=== PATIENT | male | born 1945 | race Caucasian/White ===

== ENCOUNTER 2016-11-12 15:31 | Emergency (ER) | payer MEDICARE, BC, OTHER ==
[2016-11-12] MEDS ORDERED: ASPIRIN 81 MG TABLET, CHEWABLE PO ONE (15:48)
--- NOTE | 2016-11-12 15:48 | ER Document Report ---
ED Medical Screen (RME) - General Chief Complaint: Chest Pain Stated Complaint: HEART RATE PROBLEM Notes: h/o a fib, previous cryoablation 2010 palpitations, sudden onset this AM while he was getting ready to go for a walk states he felt dizzy, nauseated, diaphoretic constant palpitations, denies chest pain, pressure, sob, dyspnea I have greeted and performed a rapid initial assessment of this patient. A comprehensive ED assessment and evaluation of the patient, analysis of test results and completion of the medical decision making process will be conducted by additional ED providers. TRAVEL OUTSIDE OF THE [place] IN LAST 30 DAYS: No - Related Data Allergies/Adverse Reactions: MALVIN Inhibitors [Malvin Inhibitors] Allergy (Verified 11/12/16 15:44) carisoprodol [From Soma] Allergy (Verified 11/12/16 15:44) Past Medical History - Past Medical History Cardiac Medical History: Reports: Hx Atrial Fibrillation, Hx Hypertension Malignancy Medical History: Reports Hx Prostate Cancer Past Surgical History: Reports: Hx Cardiac Surgery - ablation, cardioversion, Hx Orthopedic Surgery - left knee, Hx Testicular Surgery - radical prostatectomyComment Only: Hx Bowel Surgery - right inguinal hernia - Immunizations Hx Diphtheria, Pertussis, Tetanus Vaccination: No
[2016-11-12 16:19] LABS: ABSOLUTE BASOPHILS # (AUTO) 0.1 10^3/uL (0.0-0.2); ABSOLUTE LYMPHOCYTES (AUTO) 1.4 10^3/uL (0.5-4.7); ABSOLUTE MONOCYTES (AUTO) 0.6 10^3/uL (0.1-1.4); ABSOLUTE NEUT (AUTO) 5.3 10^3/uL (1.7-8.2); BASOPHILS % (AUTO) 0.7 % (0-2); EOSINOPHILS % (AUTO) 0.4 % (0-6); HEMATOCRIT 38.5 % (37.9-51.0); HEMOGLOBIN 13.2 g/dL (13.5-17.0); HGB HCT DIFFERENCE 1.1; LYMPHOCYTES % (AUTO) 19.1 % (13-45); MEAN CORPUSCULAR HEMOGLOBIN 31.9 pg (27.0-33.4); MEAN CORPUSCULAR HGB CONC 34.3 g/dL (32.0-36.0); MEAN CORPUSCULAR VOLUME 93 fl (80-97); RED BLOOD COUNT 4.13 10^6/uL (4.35-5.55); RED CELL DISTRIBUTION WIDTH 12.4 % (11.5-14.0); SEGMENTED NEUTROPHILS % (AUTO) 71.8 % (42-78); WHITE BLOOD COUNT 7.4 10^3/uL (4.0-10.5)
[2016-11-12 16:38] LABS: ALANINE AMINOTRANSFERASE 71 U/L (21-72); ALBUMIN 4.4 g/dL (3.5-5.0); ALKALINE PHOSPHATASE 79 U/L (38-126); ANION GAP 13 (5-19); ASPARTATE AMINO TRANSFERASE 68 U/L (17-59); BILIRUBIN,TOTAL 1.1 mg/dL (0.2-1.3); BLOOD UREA NITROGEN 29 mg/dL (7-20); CALCIUM 9.5 mg/dL (8.4-10.2); CARBON DIOXIDE 23 mmol/L (22-30); CHLORIDE 97 mmol/L (98-107); CREATINE KINASE 100 U/L (55-170); CREATININE RESULT 0.76 mg/dL (0.52-1.25); GLUCOSE 136 mg/dL (75-110); POTASSIUM 4.1 mmol/L (3.6-5.0); SODIUM 133.1 mmol/L (137-145); TOTAL PROTEIN 7.1 g/dL (6.3-8.2)
[2016-11-12 16:49] LABS: CREATINE KINASE MB 2.26 ng/mL (<4.55); TROPONIN I 0.033 ng/mL
[2016-11-12] MEDS ORDERED: NORMAL SALINE 1000 ML 1,000 ML IV ONE (18:18)
--- NOTE | 2016-11-12 18:54 | ER Document Report ---
ED General - General Time seen by provider: 18:35 Mode of Arrival: Ambulatory Information source: Patient TRAVEL OUTSIDE OF THE [place] IN LAST 30 DAYS: No - HPI Onset: This morning Associated symptoms: Nausea Exacerbated by: Standing <YESSENIA SHINE - Last Filed: 11/12/16 20:17> <MARY PURDY - Last Filed: 11/13/16 00:48> - General Chief Complaint: Palpitations Stated Complaint: HEART RATE PROBLEM Notes: Patient is a 71-year-old male presenting to the emergency department with complaints of dizziness and palpitations. Patient states that this morning between 0500 and 0600 he "twinged" his knee and fell and hit his head against the wall. Patient states that he then began to feel very dizzy and nauseated. Patient states he had a similar episode of vertigo when he sneezed and hit his head in his car years prior. Patient states that since this morning he has had continued dizziness and room spinning sensations. Patient states that he is feeling a little bit better but he has not tried to stand up at this point. Patient states that he believes a few tries to stand up he will probably fall from the dizziness. Patient states that while having then x-ray he felt like he was going to pass out. Patient states that in the past when he had similar symptoms in the past patient took meclizine which relieved his symptoms. Patient has a history of A. fib with some ablations. (YESSENIA SHINE) - Related Data Allergies/Adverse Reactions: MALVIN Inhibitors [Malvin Inhibitors] Allergy (Verified 11/12/16 15:44) carisoprodol [From Soma] Allergy (Verified 11/12/16 15:44) Past Medical History - General Information source: Patient - Social History Smoking Status: Never Smoker Cigarette use (# per day): No Chew tobacco use (# tins/day): No Frequency of alcohol use: None Drug Abuse: None Family History: None Patient has suicidal ideation: No Patient has homicidal ideation: No - Past Medical History Cardiac Medical History: Reports: Hx Atrial Fibrillation, Hx Hypertension Malignancy Medical History: Reports Hx Prostate Cancer Past Surgical History: Reports: Hx Bowel Surgery - right inguinal hernia, Hx Cardiac Surgery - ablation, cardioversion, Hx Orthopedic Surgery - left knee, Hx Testicular Surgery - radical prostatectomy - Immunizations Hx Diphtheria, Pertussis, Tetanus Vaccination: No <YESSENIA SHINE - Last Filed: 11/12/16 20:17> Review of Systems - Review of Systems Constitutional: No symptoms reported EENT: No symptoms reported Cardiovascular: See HPI, Dizziness, Lightheaded Respiratory: No symptoms reported Gastrointestinal: See HPI, Nausea Genitourinary: No symptoms reported Male Genitourinary: No symptoms reported Musculoskeletal: No symptoms reported Skin: No symptoms reported Hematologic/Lymphatic: No symptoms reported Neurological/Psychological: No symptoms reported -: Yes All other systems reviewed and negative <YESSENIA SHINE - Last Filed: 11/12/16 20:17> Physical Exam - Vital signs Interpretation: Normal - General General appearance: Appears well, Alert - HEENT Head: Normocephalic, Atraumatic Eyes: Normal Pupils: PERRL Mucous membranes: Dry - Respiratory Respiratory status: No respiratory distress Chest status: Nontender Breath sounds: Normal Chest palpation: Normal - Cardiovascular Rhythm: Regular Heart sounds: Normal auscultation Murmur: No - Abdominal Inspection: Normal Distension: No distension Bowel sounds: Normal Tenderness: Nontender Organomegaly: No organomegaly - Back Back: Normal, Nontender - Extremities General upper extremity: Normal inspection, Nontender, Normal color, Normal ROM , Normal temperature General lower extremity: Normal inspection, Nontender, Normal color, Normal ROM , Normal temperature, Normal weight bearing. No: Peter's sign - Neurological Neuro grossly intact: Yes Cognition: Normal Orientation: AAOx4 Elinor Coma Scale Eye Opening: Spontaneous [place] Coma Scale Verbal: Oriented Elinor Coma Scale Motor: Obeys Commands [place] Coma Scale Total: 15 Speech: Normal Motor strength normal: LUE, RUE, LLE, RLE Sensory: Normal - Psychological Associated symptoms: Normal affect, Normal mood - Skin Skin Temperature: Warm Skin Moisture: Dry Skin Color: Normal <MARY PURDY - Last Filed: 11/13/16 00:48> - Vital signs Vitals: Temp Pulse Resp BP Pulse Ox 97.6 F 114 H 20 163/105 H 98 11/12/16 15:45 11/12/16 15:45 11/12/16 15:45 11/12/16 15:45 11/12/16 15:45 (YESSENIA SHINE) (MARY PURDY) Course - Laboratory Result Diagrams: 11/12/16 16:00 11/12/16 16:00 <YESSENIA SHINE - Last Filed: 11/12/16 20:17> - Laboratory Result Diagrams: 11/12/16 16:00 11/12/16 16:00 - Diagnostic Test Radiology reviewed: Reports reviewed - EKG Interpretation by Me EKG shows normal: Sinus rhythm Rate: Tachycardia Rhythm: NSR <MARY PURDY - Last Filed: 11/13/16 00:48> - Re-evaluation Re-evalutation: 11/12/16 20:30 Patient is rechecked and asked how he is feeling with the medication. Patient states that he is feeling better and not as dizzy. (YESSENIA SHINE) Patient with no acute findings on blood work. EKG with no acute changes. Patient has not had any chest pain or headache. Patient has had vertigo in the past and feels similar today. Patient has been given Zofran and meclizine. He is not orthostatic. Ambulates without difficulty around the emergency department. No further head spinning sensation. Patient will be discharged home and is to follow-up with his doctor. He'll be given prescription for meclizine and Zofran. Understands agrees with plan. (MARY PURDY) - Vital Signs Vital signs: Temp Pulse Resp BP Pulse Ox 98.0 F 94 23 H 126/85 H 100 11/12/16 22:52 11/12/16 22:52 11/12/16 22:52 11/12/16 22:52 11/12/16 22:52 (YESSENIA SHINE) (MARY PURDY) - Laboratory Laboratory results interpreted by me: 11/12/16 11/12/16 11/12/16 16:00 16:00 18:38 RBC 4.13 L Hgb 13.2 L Sodium 133.1 L Chloride 97 L BUN 29 H Glucose 136 H AST 68 H Urine Ketones 20 H (YESSENIA SHINE) (MARY PURDY) Discharge <YESSENIA SHINE - Last Filed: 11/12/16 20:17> <MARY PURDY - Last Filed: 11/13/16 00:48> - Discharge Clinical Impression: Vertigo Condition: Stable Disposition: HOME, SELF-CARE Instructions: Vertigo ([facility]) Prescriptions: Meclizine HCl 25 mg PO TID #21 tablet Ondansetron [Zofran Odt 4 mg Tablet] 1 tab PO Q4H PRN #15 tab.rapdis PRN Reason: For Nausea/Vomiting Referrals: ADRIANA CRUZ MD [Primary Care Provider] - Follow up in 3-5 days Scribe Attestation: 11/13/16 00:48 I personally performed the services described in the documentation, reviewed and edited the documentation which was dictated to the scribe in my presence, and it accurately records my words and actions. (MARY PURDY) Scribe Documentation - Scribe Written by Nereida:: Yessenia Shine 11/12/16 20:55 acting as scribe for :: Brenda <YESSENIA SHINE - Last Filed: 11/12/16 20:17>
[2016-11-12] MEDS ORDERED: MECLIZINE HCL 25 MG TABLET PO ONE ×2 (18:57→22:24)
[2016-11-12] MEDS ORDERED: ONDANSETRON HCL INJ/PF 4 MG/2 ML SDV IV ONE (18:57)
[2016-11-12 19:19] LABS: APPEARANCE,URINE CLEAR; BILIRUBIN,URINE NEGATIVE (NEGATIVE); GLUCOSE, URINE NEGATIVE (NEGATIVE); KETONES,URINE 20 mg/dL (NEGATIVE); LEUKOCYTE ESTERASE,URINE NEGATIVE (NEGATIVE); NITRITE,URINE NEGATIVE (NEGATIVE); PROTEIN,URINE NEGATIVE (NEGATIVE); URINE SPECIFIC GRAVITY 1.024; UROBILINOGEN,URINE NEGATIVE mg/dL (<2.0)
[2016-11-12] MEDS ORDERED: METOCLOPRAMIDE HCL INJ/PF 10 MG/2 ML SDV IV ONE (20:07)
[2016-11-12] MEDS ORDERED: ONDANSETRON ODT 4 MG TAB (6 TAB/DSPK) PO PRN (22:24)
[2016-11-12 22:53] VITALS: BP 126/85
--- NOTE | 2016-11-13 00:10 | EKG REPORT ---
SEVERITY:- ABNORMAL ECG - SINUS TACHYCARDIA LVH WITH SECONDARY REPOLARIZATION ABNORMALITY CONSIDER ANTERIOR INFARCT : Confirmed by: Maria M Cornelius 13-Nov-2016 00:09:05
--- NOTE | 2016-11-13 00:10 | EKG REPORT ---
SEVERITY:- ABNORMAL ECG - SINUS RHYTHM LEFT VENTRICULAR HYPERTROPHY PROBABLE INFERIOR INFARCT, AGE INDETERMINATE CONSIDER ANTERIOR INFARCT BORDERLINE PROLONGED QT INTERVAL : Confirmed by: Maria M Cornelius 13-Nov-2016 00:08:49
== END 2016-11-12 22:53 | disposition home or self-care (01) ==
LOC: ER 15:31
DX: R42 Dizziness and giddiness (principal); R00.2 Palpitations; R11.0 Nausea; I48.91 Unspecified atrial fibrillation; Z85.46 Personal history of malignant neoplasm of prostate
CPT/HCPCS: 93005; 99285; 96361; 96374; 96375; 36415; 82553; 82550; 84443; 85025; 80053; 81001; 84484; 71010; 93010; A9270 ×3; J2765; J2405; J7030

== ENCOUNTER → 2017-03-20 | Outpatient (CLI) | payer MEDICARE, BC, OTHER ==
[2017-03-21 09:09] LABS: PROSTATE SPECIFIC ANTIGEN <0.1 ng/mL (0.0-4.0); PSA FREE <0.01 ng/mL
== END ==
LOC: OD 09:03
PROVIDERS: ATTEND Urology
DX: C61 Malignant neoplasm of prostate (principal)
CPT/HCPCS: 36415; 84154

== ENCOUNTER → 2017-10-01 | Outpatient (CLI) | payer MEDICARE, BC, OTHER ==
[2017-10-01 09:58] LABS: ANION GAP 12 (5-19); BLOOD UREA NITROGEN 13 mg/dL (7-20); CARBON DIOXIDE 28 mmol/L (22-30); CHLORIDE 100 mmol/L (98-107); MAGNESIUM 1.9 mg/dL (1.6-2.3); POTASSIUM 4.7 mmol/L (3.6-5.0); SODIUM 139.6 mmol/L (137-145)
== END ==
LOC: OD 08:40
PROVIDERS: ATTEND Internal Medicine
DX: C61 Malignant neoplasm of prostate (principal); I10 Essential (primary) hypertension
CPT/HCPCS: 36415; 80051; 82565; 83735; 84520

== ENCOUNTER → 2018-03-18 | Outpatient (CLI) | payer MEDICARE, BC, OTHER ==
[2018-03-19 09:09] LABS: PROSTATE SPECIFIC ANTIGEN <0.1 ng/mL (0.0-4.0)
[2018-03-19 09:10] LABS: PSA FREE <0.01 ng/mL
== END ==
LOC: OD 09:35
PROVIDERS: ATTEND Urology
DX: C61 Malignant neoplasm of prostate (principal)
CPT/HCPCS: 36415; 84154

== ENCOUNTER → 2018-05-27 | Outpatient (CLI) | payer MEDICARE, BC, OTHER ==
--- NOTE | 2018-05-27 15:17 | RADIOLOGY REPORT (SQ) ---
EXAM DESCRIPTION: CHEST PA/LATERAL; RIBS LEFT W/O PA CHEST COMPLETED DATE/TIME: 05/27/2018 2:55 pm REASON FOR STUDY: PLEURODYNIA,SOB COMPARISON: 11/12/2016 EXAM PARAMETERS: NUMBER OF VIEWS: 7 views. TECHNIQUE: Digital Frontal and Lateral radiographic views of the chest acquired. Oblique views of th e left ribs. RADIATION DOSE: NA LIMITATIONS: none FINDINGS: LUNGS AND PLEURA: Chronic elevation right diaphragm. No evidence of pulmonary edema or pn eumonia. No pneumothorax. MEDIASTINUM AND HILAR STRUCTURES: No masses or contour abnormalities. HEART AND VASCULAR STRUCTURES: Heart normal size. No evidence for failure. BONES: No acute rib fracture. HARDWARE: CABG. OTHER: No other significant finding. IMPRESSION: No acute findings in the chest. TECHNICAL DOCUMENTATION: JOB ID: [id number] [employer]- All Rights Reserved Reading location - IP/workstation name: [email or web address]
--- NOTE | 2018-05-27 15:17 | RADIOLOGY REPORT (SQ) ---
EXAM DESCRIPTION: CHEST PA/LATERAL; RIBS LEFT W/O PA CHEST COMPLETED DATE/TIME: 05/27/2018 2:55 pm REASON FOR STUDY: PLEURODYNIA,SOB COMPARISON: 11/12/2016 EXAM PARAMETERS: NUMBER OF VIEWS: 7 views. TECHNIQUE: Digital Frontal and Lateral radiographic views of the chest acquired. Oblique views of th e left ribs. RADIATION DOSE: NA LIMITATIONS: none FINDINGS: LUNGS AND PLEURA: Chronic elevation right diaphragm. No evidence of pulmonary edema or pn eumonia. No pneumothorax. MEDIASTINUM AND HILAR STRUCTURES: No masses or contour abnormalities. HEART AND VASCULAR STRUCTURES: Heart normal size. No evidence for failure. BONES: No acute rib fracture. HARDWARE: CABG. OTHER: No other significant finding. IMPRESSION: No acute findings in the chest. TECHNICAL DOCUMENTATION: JOB ID: [id number] [employer]- All Rights Reserved Reading location - IP/workstation name: [email or web address]
== END ==
LOC: OD 14:30
PROVIDERS: ATTEND Internal Medicine
DX: R07.81 Pleurodynia (principal); R06.02 Shortness of breath
CPT/HCPCS: 71046

== ENCOUNTER → 2018-07-23 | Outpatient (CLI) | payer MEDICARE, BC, OTHER ==
[2018-07-23 08:42] LABS: ABSOLUTE BASOPHILS # (AUTO) 0.1 10^3/uL (0.0-0.2); ABSOLUTE EOSINOPHILS # (AUTO) 0.1 10^3/uL (0.0-0.6); ABSOLUTE LYMPHOCYTES (AUTO) 1.1 10^3/uL (0.5-4.7); ABSOLUTE MONOCYTES (AUTO) 0.6 10^3/uL (0.1-1.4); ABSOLUTE NEUT (AUTO) 2.5 10^3/uL (1.7-8.2); EOSINOPHILS % (AUTO) 1.7 % (0-6); HEMATOCRIT 39.2 % (37.9-51.0); HEMOGLOBIN 13.6 g/dL (13.5-17.0); LYMPHOCYTES % (AUTO) 25.3 % (13-45); MEAN CORPUSCULAR HEMOGLOBIN 34.4 pg (27.0-33.4); MEAN CORPUSCULAR HGB CONC 34.9 g/dL (32.0-36.0); MEAN CORPUSCULAR VOLUME 99 fl (80-97); MONOCYTES % (AUTO) 12.9 % (3-13); PLATELET COUNT 187 10^3/uL (150-450); RED BLOOD COUNT 3.97 10^6/uL (4.35-5.55); RED CELL DISTRIBUTION WIDTH 13.2 % (11.5-14.0); SEGMENTED NEUTROPHILS % (AUTO) 58.1 % (42-78); TOTAL CELLS COUNTED % (AUTO) 100 %; WHITE BLOOD COUNT 4.3 10^3/uL (4.0-10.5)
[2018-07-23 09:04] LABS: ALANINE AMINOTRANSFERASE 89 U/L (21-72); ALBUMIN 4.1 g/dL (3.5-5.0); ALKALINE PHOSPHATASE 86 U/L (38-126); ANION GAP 14 (5-19); ASPARTATE AMINO TRANSFERASE 118 U/L (17-59); BILIRUBIN,DIRECT 0.5 mg/dL (0.0-0.4); BILIRUBIN,TOTAL 1.4 mg/dL (0.2-1.3); BLOOD UREA NITROGEN 16 mg/dL (7-20); CARBON DIOXIDE 28 mmol/L (22-30); CHLORIDE 102 mmol/L (98-107); CHOLESTEROL 144.51 mg/dL (0-200); GLUCOSE 90 mg/dL (75-110); POTASSIUM 3.8 mmol/L (3.6-5.0); SODIUM 143.6 mmol/L (137-145); TOTAL PROTEIN 7.1 g/dL (6.3-8.2); TRIGLYCERIDES 72 mg/dL (<150)
[2018-07-23 09:15] LABS: DIRECT LDL 55 mg/dL (<100)
== END ==
LOC: OD 07:24
PROVIDERS: ATTEND Internal Medicine
DX: I10 Essential (primary) hypertension (principal); E78.5 Hyperlipidemia, unspecified; R53.83 Other fatigue; G47.33 Obstructive sleep apnea (adult) (pediatric)
CPT/HCPCS: 36415; 80053; 80061; 84443; 85025

== ENCOUNTER 2018-07-31 08:31 | Inpatient (IN) | payer MEDICARE, BC, OTHER ==
[2018-07-31] MEDS ORDERED: LORAZEPAM INJ 2 MG/1 ML VIAL IV ONE (09:07)
[2018-07-31] MEDS ORDERED: NORMAL SALINE 1000 ML 1,000 ML IV ONE (09:12)
--- NOTE | 2018-07-31 09:15 | ER Document Report ---
ED General - General Chief Complaint: Alcohol Withdrawl Stated Complaint: NAUSEA Time Seen by Provider: 07/31/18 08:45 TRAVEL OUTSIDE OF THE [place] IN LAST 30 DAYS: No - HPI Patient complains to provider of: tremors Onset: Other - This is 73-year-old man with a complex past medical history including mitral valve repair as well as atrial fibrillation on Eliquis as well as tikosyn that presents for evaluation of desired alcohol abstention in the setting of having drank nearly 1/5 of vodka for the last 5 years. He did abstain from alcohol for a brief period of time while he was hospitalized for a surgery last August. During that time he did require doses of Ativan to help with his symptoms. Since that time he is continued to drink daily. He has never had any seizure in the past, he has however developed bad shaking and agitation over the last 12 hours. His last drink was approximately 48 hours ago. He denies any chest pain but does endorse some palpitations, denies any abdominal pain diarrhea constipation or dysuria. His notes that he does seem a little confused and she was very concerned. - Related Data Allergies/Adverse Reactions: MALVIN Inhibitors [Malvin Inhibitors] Allergy (Verified 07/31/18 08:33) carisoprodol [From Soma] Allergy (Verified 07/31/18 08:33) Past Medical History - General Information source: Patient, Relative - Social History Smoking Status: Former Smoker Family History: None - Past Medical History Cardiac Medical History: Reports: Hx Atrial Fibrillation, Hx Hypertension Renal/ Medical History: Denies: Hx Peritoneal Dialysis Malignancy Medical History: Reports Hx Prostate Cancer Past Surgical History: Reports: Hx Bowel Surgery - right inguinal hernia, Hx Cardiac Surgery - ablation, cardioversion, Hx Orthopedic Surgery - left knee, Hx Testicular Surgery - radical prostatectomy - Immunizations Hx Diphtheria, Pertussis, Tetanus Vaccination: No Review of Systems - Review of Systems -: Yes All other systems reviewed and negative Physical Exam - Vital signs Vitals: Temp Pulse Resp BP Pulse Ox 97.7 F 105 H 20 154/109 H 95 07/31/18 08:44 07/31/18 08:44 07/31/18 08:44 07/31/18 08:44 07/31/18 08:44 - General General appearance: Alert, Anxious In distress: Moderate - HEENT Head: Normocephalic Eyes: Normal Conjunctiva: Normal Cornea: Normal Extraocular movements intact: Yes Eyelashes: Normal Pupils: PERRL - Respiratory Respiratory status: No respiratory distress Chest status: Nontender Breath sounds: Normal Chest palpation: Normal - Cardiovascular Rhythm: Tachycardia Heart sounds: Normal auscultation Murmur: No - Abdominal Inspection: Normal Distension: No distension Tenderness: Nontender - Back Back: Normal - Extremities General upper extremity: Normal inspection, Nontender, Normal ROM, Normal strength General lower extremity: Normal inspection, Nontender, Normal ROM, Normal strength - Neurological Neuro grossly intact: Yes Cognition: Normal Orientation: AAOx4 Elinor Coma Scale Eye Opening: Spontaneous [place] Coma Scale Verbal: Oriented Elinor Coma Scale Motor: Obeys Commands Elinor Coma Scale Total: 15 Speech: Normal Cranial nerves: Normal Cerebellar coordination: Normal Motor strength normal: LUE, RUE, LLE, RLE - Psychological Associated symptoms: Agitated, Flight of ideas Course - Re-evaluation Re-evalutation: 07/31/18 09:16 This is a 73-year-old man that presents for evaluation of desired alcohol withdrawal management. 5-year history of heavy alcohol consumption. Also has a complex past medical history. His is very concerned because he has become much more tremulous over the last 12 hours. He is also somewhat agitated according to her. Initial see was score for this person is 9 or 10. Will administer a dose of Ativan IV, 1 mg. Patient had taken 0.5 mg tablet this morning which he had leftover from his previous surgery because of his shakiness. 07/31/18 09:[address] Cantu client, will contact him for admission of this patient continued monitoring, have initiated treatment with a banana bag as well as Ativan and see was scoring. Will plan for continued monitoring and reassessment along the emergency department. - Vital Signs Vital signs: Temp Pulse Resp BP Pulse Ox 97.7 F 94 16 160/104 H 95 07/31/18 12:20 07/31/18 12:38 07/31/18 12:20 07/31/18 12:20 07/31/18 12:20 - Laboratory Result Diagrams: 07/31/18 09:06 07/31/18 09:06 Laboratory results interpreted by me: 07/31/18 07/31/18 09:06 09:06 RBC 4.15 L MCV 98 H MCH 34.1 H Glucose 116 H Total Bilirubin 2.5 H Direct Bilirubin 0.6 H AST 80 H ALT 74 H Lipase 344.2 H Discharge - Discharge Clinical Impression: Tachycardia Alcohol withdrawal Qualifiers: Complication of substance-induced condition: with unspecified complication Qualified Code(s): F10.239 - Alcohol dependence with withdrawal, unspecified Hypertension Qualifiers: Hypertension type: unspecified Qualified Code(s): I10 - Essential (primary) hypertension Condition: Stable Disposition: ADMITTED INPATIENT Admitting Provider: Alondra Unit Admitted: [facility]
[2018-07-31 09:20] LABS: ABSOLUTE LYMPHOCYTES (AUTO) 0.8 10^3/uL (0.5-4.7); ABSOLUTE MONOCYTES (AUTO) 0.5 10^3/uL (0.1-1.4); ABSOLUTE NEUT (AUTO) 3.1 10^3/uL (1.7-8.2); EOSINOPHILS % (AUTO) 0.9 % (0-6); HEMATOCRIT 40.7 % (37.9-51.0); HEMOGLOBIN 14.2 g/dL (13.5-17.0); LYMPHOCYTES % (AUTO) 17.5 % (13-45); MEAN CORPUSCULAR HEMOGLOBIN 34.1 pg (27.0-33.4); MEAN CORPUSCULAR HGB CONC 34.8 g/dL (32.0-36.0); MEAN CORPUSCULAR VOLUME 98 fl (80-97); PLATELET COUNT 187 10^3/uL (150-450); RED BLOOD COUNT 4.15 10^6/uL (4.35-5.55); RED CELL DISTRIBUTION WIDTH 13.1 % (11.5-14.0); SEGMENTED NEUTROPHILS % (AUTO) 68.6 % (42-78); TOTAL CELLS COUNTED % (AUTO) 100 %; WHITE BLOOD COUNT 4.5 10^3/uL (4.0-10.5)
[2018-07-31 09:38] LABS: ALANINE AMINOTRANSFERASE 74 U/L (21-72); ALKALINE PHOSPHATASE 94 U/L (38-126); ANION GAP 10 (5-19); ASPARTATE AMINO TRANSFERASE 80 U/L (17-59); BILIRUBIN,DIRECT 0.6 mg/dL (0.0-0.4); BILIRUBIN,TOTAL 2.5 mg/dL (0.2-1.3); BLOOD UREA NITROGEN 13 mg/dL (7-20); CALCIUM 8.9 mg/dL (8.4-10.2); CARBON DIOXIDE 28 mmol/L (22-30); CHLORIDE 100 mmol/L (98-107); GLUCOSE 116 mg/dL (75-110); LIPASE 344.2 U/L (23-300); POTASSIUM 4.2 mmol/L (3.6-5.0); SODIUM 137.6 mmol/L (137-145); TOTAL PROTEIN 7.2 g/dL (6.3-8.2)
[2018-07-31 09:42] LABS: ALCOHOL < 10 mg/dL (NONE DETECTED)
[2018-07-31] MEDS ORDERED: NORMAL SALINE 1000 ML 1,000 ML with POTASSIUM CHLORIDE 20 MEQ, MAGNESIUM SULFATE 8 MEQ,... IV ONE ×5 (10:00)
[2018-07-31 10:44] LABS: FOLATE > 20.00 ng/mL (>2.76)
[2018-07-31] MEDS: LORAZEPAM 1 MG TABLET PO PRN ×2 (12:41→14:41)
--- NOTE | 2018-07-31 12:52 | EKG REPORT ---
SEVERITY:- ABNORMAL ECG - SINUS RHYTHM FIRST DEGREE AV BLOCK BORDERLINE LEFT AXIS DEVIATION ANTERIOR INFARCT, OLD BORDERLINE T ABNORMALITIES, INFERIOR LEADS : Confirmed by: Gian Caro MD 31-Jul-2018 12:52:11
[2018-07-31] MEDS: NORMAL SALINE 1000 ML 1,000 ML IV PRN (15:57)
--- NOTE | 2018-07-31 17:29 | PDOC H&P ---
History of Present Illness Admission Date/PCP: 07/31/18 10:44 ADRIANA CRUZ MD Patient complains of: Tremors History of Present Illness: ANGEL HILLIARD is a 73 year old male Past Medical History Cardiac Medical History: Reports: Atrial Fibrillation, Hypertension Neurological Medical History: Reports: Other Neurological History Note: Essential tremor Malignancy Medical History: Reports: Other - Prostate cancer Past Surgical History Past Surgical History: Reports: Coronary Artery Bypass Graft, Orthopedic Surgery - left knee Social History Lives with: Family, Spouse/Significant other Smoking Status: Former Smoker Frequency of Alcohol Use: Heavy Last Alcohol Use: 07/29/18 Hx Recreational Drug Use: No Hx Prescription Drug Abuse: No - Advance Directive Resuscitation Status: Full Code Family History Family History: None, Reviewed & Not Pertinent Parental Family History Reviewed: Yes Children Family History Reviewed: Yes Sibling(s) Family History Reviewed.: Yes Medication/Allergy Home Medications: Apixaban [Eliquis 5 mg Tablet] 10 mg PO DAILY 07/31/18 Aspirin [Aspirin EC] 81 mg PO DAILY 07/31/18 Atorvastatin Calcium [Lipitor 20 mg Tablet] 20 mg PO QHS 07/31/18 Dofetilide [Tikosyn] 250 mcg PO 0800,199907/31/18 Furosemide [Lasix 40 mg Tablet] 40 mg PO QAM 07/31/18 Glucosamine/Chondroiti/Htum551 [Cosamin Asu Capsule] 2 each PO DAILY 07/31/18 Magnesium Oxide [Mag-Ox 400 mg Tablet] 400 mg PO DAILY 07/31/18 Multivitamin [Tab-A-Candido] 1 each PO DAILY 07/31/18 Fishs Eddy-3S/Dha/Epa/Fish Oil [Fish Oil Fishs Eddy-3 Softgel] 1 each PO DAILY 07/31/18 Potassium Chloride [Klor-Con M20] 40 meq PO DAILY 07/31/18 Telmisartan [Micardis 80 mg Tablet] 160 mg PO DAILY 07/31/18 Allergies/Adverse Reactions: MALVIN Inhibitors [Malvin Inhibitors] Allergy (Verified 07/31/18 08:33) carisoprodol [From Soma] Allergy (Verified 07/31/18 08:33) Review of Systems All systems: as per [facility] Physical Exam Vital Signs: Temp Pulse Resp BP Pulse Ox 98.0 F 88 16 147/98 H 96 07/31/18 15:45 07/31/18 15:45 07/31/18 15:45 07/31/18 15:45 07/31/18 15:45 General appearance: PRESENT: mild distress Head exam: PRESENT: atraumatic Eye exam: PRESENT: conjunctival injection Mouth exam: PRESENT: dry mucosa Neck exam: PRESENT: carotid bruit. ABSENT: JVD Respiratory exam: PRESENT: clear to auscultation [place] Cardiovascular exam: PRESENT: irregular rhythm, +S1, +S2 Pulses: PRESENT: +1 pedal pulses bilateral GI/Abdominal exam: PRESENT: normal bowel sounds Extremities exam: PRESENT: full ROM Musculoskeletal exam: PRESENT: ambulatory Neurological exam: PRESENT: alert, awake, oriented to person, oriented to place , oriented to time Additional comments: Bilateral fine hand tremor Psychiatric exam: PRESENT: anxious Results Laboratory Results: 07/31/18 13:47 Vitamin B1 Cancelled Vitamin B6 Cancelled Assessment & Plan - Diagnosis (1) Paroxysmal atrial fibrillation Is this a current diagnosis for this admission?: Yes Plan: We will continue monitoring and continue current medication (2) Alcohol withdrawal Qualifiers: Complication of substance-induced condition: with unspecified complication Qualified Code(s): F10.239 - Alcohol dependence with withdrawal, unspecified Is this a current diagnosis for this admission?: Yes Plan: We will continue with Ativan to prevent DTs (3) Hypertension Qualifiers: Hypertension type: unspecified Qualified Code(s): I10 - Essential (primary ) hypertension Is this a current diagnosis for this admission?: Yes Plan: We will continue current medications (4) Tachycardia Is this a current diagnosis for this admission?: Yes Plan: Most probably due to alcohol withdrawal
[2018-07-31] MEDS ORDERED: NORMAL SALINE 1000 ML 1,000 ML with POTASSIUM CHLORIDE 20 MEQ, MAGNESIUM SULFATE 8 MEQ,... IV SCH ×5 (18:00)
[2018-07-31] MEDS: LORAZEPAM INJ 2 MG/1 ML VIAL IV PRN (19:20)
[2018-07-31] MEDS: DOFETILIDE 125 MCG CAPSULE PO SCH (19:53)
[2018-07-31] MEDS ORDERED: (PENDING PHARMACY ID) (Dofetilide [Tikosyn] 250 MCG) PO SCH (20:00)
[2018-07-31] MEDS: ATORVASTATIN CALCIUM 20 MG TABLET PO SCH (21:36)
[2018-07-31] MEDS: LORAZEPAM 0.5 MG TABLET PO PRN (21:38)
[2018-08-01] MEDS: NORMAL SALINE 1000 ML 1,000 ML IV PRN (00:04)
[2018-08-01] MEDS: LORAZEPAM INJ 2 MG/1 ML VIAL IV PRN ×7 (00:04→22:12)
[2018-08-01 05:25] LABS: ABSOLUTE EOSINOPHILS # (AUTO) 0.1 10^3/uL (0.0-0.6); ABSOLUTE LYMPHOCYTES (AUTO) 1.1 10^3/uL (0.5-4.7); ABSOLUTE MONOCYTES (AUTO) 0.5 10^3/uL (0.1-1.4); ABSOLUTE NEUT (AUTO) 2.5 10^3/uL (1.7-8.2); HEMATOCRIT 37.3 % (37.9-51.0); HEMOGLOBIN 12.9 g/dL (13.5-17.0); LYMPHOCYTES % (AUTO) 25.9 % (13-45); MEAN CORPUSCULAR HEMOGLOBIN 34.4 pg (27.0-33.4); MEAN CORPUSCULAR HGB CONC 34.5 g/dL (32.0-36.0); MEAN CORPUSCULAR VOLUME 100 fl (80-97); MONOCYTES % (AUTO) 11.9 % (3-13); PLATELET COUNT 161 10^3/uL (150-450); RED BLOOD COUNT 3.74 10^6/uL (4.35-5.55); SEGMENTED NEUTROPHILS % (AUTO) 59.2 % (42-78); TOTAL CELLS COUNTED % (AUTO) 100 %; WHITE BLOOD COUNT 4.2 10^3/uL (4.0-10.5)
[2018-08-01 05:56] LABS: ALANINE AMINOTRANSFERASE 57 U/L (21-72); ALBUMIN 3.2 g/dL (3.5-5.0); ALKALINE PHOSPHATASE 72 U/L (38-126); ANION GAP 8 (5-19); ASPARTATE AMINO TRANSFERASE 60 U/L (17-59); BILIRUBIN,DIRECT 0.6 mg/dL (0.0-0.4); BILIRUBIN,TOTAL 2.2 mg/dL (0.2-1.3); BLOOD UREA NITROGEN 11 mg/dL (7-20); CALCIUM 8.4 mg/dL (8.4-10.2); CARBON DIOXIDE 26 mmol/L (22-30); CHLORIDE 107 mmol/L (98-107); GLUCOSE 100 mg/dL (75-110); POTASSIUM 4.8 mmol/L (3.6-5.0); SODIUM 140.7 mmol/L (137-145); TOTAL PROTEIN 6.1 g/dL (6.3-8.2)
[2018-08-01] MEDS ORDERED: FUROSEMIDE INJ/PF 40 MG/4 ML SDV IV ONE (08:25)
[2018-08-01] MEDS ORDERED: TAMSULOSIN HCL 0.4 MG CAP.SR.24H PO ONE (08:26)
--- NOTE | 2018-08-01 08:31 | PDOC PROGRESS REPORT ---
Subjective Progress Note for:: 08/01/18 Subjective:: The patient states to feel better. He is still very shaky. He is having some dysuria. He denies any chest pain he does have some dyspnea most probably because of fluid overload. Reason For Visit: ETOH WITHDRAWAL,AFIB Physical Exam Vital Signs: Temp Pulse Resp BP Pulse Ox 97.5 F 76 22 H 133/96 H 99 08/01/18 03:18 08/01/18 03:18 08/01/18 03:18 08/01/18 03:18 08/01/18 03:18 Intake & Output 07/31/18 08/01/18 08/02/18 06:59 06:59 06:59 Intake Total 1222 Output Total 250 Balance 972 General appearance: PRESENT: mild distress Head exam: PRESENT: atraumatic Eye exam: PRESENT: conjunctiva pink Neck exam: PRESENT: carotid bruit. ABSENT: JVD Respiratory exam: PRESENT: crackles Cardiovascular exam: PRESENT: irregular rhythm, +S1, +S2 GI/Abdominal exam: PRESENT: normal bowel sounds, soft Extremities exam: PRESENT: full ROM Musculoskeletal exam: PRESENT: ambulatory Neurological exam: PRESENT: alert, awake Focused psych exam: PRESENT: restlessness Results Laboratory Results: 08/01/18 05:12 08/01/18 05:12 07/31/18 08/01/18 08/01/18 13:47 05:12 05:12 WBC 4.2 RBC 3.74 L Hgb 12.9 L Hct 37.3 L MCV 100 H MCH 34.4 H MCHC 34.5 RDW 13.0 Plt Count 161 Seg Neutrophils % 59.2 Lymphocytes % 25.9 Monocytes % 11.9 Eosinophils % 2.0 Basophils % 1.0 Absolute Neutrophils 2.5 Absolute Lymphocytes 1.1 Absolute Monocytes 0.5 Absolute Eosinophils 0.1 Absolute Basophils 0.0 Sodium 140.7 Potassium 4.8 Chloride 107 Carbon Dioxide 26 Anion Gap 8 BUN 11 Creatinine 0.71 Est GFR ( Amer) > 60 Est GFR (Non-Af Amer) > 60 Glucose 100 Calcium 8.4 Magnesium 2.0 Total Bilirubin 2.2 H AST 60 H ALT 57 Alkaline Phosphatase 72 Total Protein 6.1 L Albumin 3.2 L Vitamin B1 Cancelled Vitamin B6 Cancelled TSH 08/01/18 05:12 WBC RBC Hgb Hct MCV MCH MCHC RDW Plt Count Seg Neutrophils % Lymphocytes % Monocytes % Eosinophils % Basophils % Absolute Neutrophils Absolute Lymphocytes Absolute Monocytes Absolute Eosinophils Absolute Basophils Sodium Potassium Chloride Carbon Dioxide Anion Gap BUN Creatinine Est GFR ( Amer) Est GFR (Non-Af Amer) Glucose Calcium Magnesium Total Bilirubin AST ALT Alkaline Phosphatase Total Protein Albumin Vitamin B1 Vitamin B6 TSH 5.59 H Assessment & Plan - Diagnosis (1) Paroxysmal atrial fibrillation Is this a current diagnosis for this admission?: Yes Plan: We will continue monitoring and continue current medication (2) Alcohol withdrawal Qualifiers: Complication of substance-induced condition: with unspecified complication Qualified Code(s): F10.239 - Alcohol dependence with withdrawal, unspecified Is this a current diagnosis for this admission?: Yes Plan: We will continue with Ativan to prevent DTs (3) Hypertension Qualifiers: Hypertension type: unspecified Qualified Code(s): I10 - Essential (primary ) hypertension Is this a current diagnosis for this admission?: Yes Plan: We will continue current medications (4) Tachycardia Is this a current diagnosis for this admission?: Yes Plan: Most probably due to alcohol withdrawal
[2018-08-01] MEDS: LORAZEPAM 0.5 MG TABLET PO PRN (08:39)
[2018-08-01] MEDS: DOFETILIDE 125 MCG CAPSULE PO SCH ×2 (08:40→19:04)
[2018-08-01] MEDS: OMEGA-3 ACID ETHYL ESTERS 1 GM CAPSULE PO SCH (08:43)
[2018-08-01] MEDS ORDERED: [UNRECOGNIZED DRUG - OTHER] PO SCH (10:00)
[2018-08-01] MEDS ORDERED: TELMISARTAN PO SCH (10:00)
[2018-08-01] MEDS ORDERED: FISH OIL PO SCH (10:00)
[2018-08-01] MEDS ORDERED: (PENDING PHARMACY ID) (Potassium Chloride [Klor-Con M20] 40 MEQ) PO SCH (10:00)
[2018-08-01] MEDS ORDERED: EPA PO SCH (10:00)
[2018-08-01] MEDS ORDERED: DHA PO SCH (10:00)
[2018-08-01] MEDS ORDERED: OMEGA PO SCH (10:00)
[2018-08-01] MEDS: ASPIRIN 81 MG TABLET, ENT COATED PO SCH (10:36)
[2018-08-01] MEDS: FUROSEMIDE 40 MG TABLET PO SCH (10:36)
[2018-08-01] MEDS: MULTIVITAMIN TABLET PO SCH (10:36)
[2018-08-01] MEDS: MAGNESIUM OXIDE 400 MG TABLET PO SCH (10:37)
[2018-08-01] MEDS: APIXABAN 5 MG TABLET PO SCH (10:37)
[2018-08-01] MEDS: FOLIC ACID 1 MG TABLET PO SCH (10:37)
[2018-08-01] MEDS: LOSARTAN POTASSIUM 50 MG TABLET PO SCH (10:38)
[2018-08-01] MEDS: POTASSIUM CHLORIDE 10 MEQ CAPSULE.ER PO SCH (10:38)
[2018-08-01] MEDS: THIAMINE HCL 100 MG TABLET PO SCH (10:39)
[2018-08-01] MEDS ORDERED: ACETAMINOPHEN 325 MG TABLET PO PRN (14:04)
[2018-08-01] MEDS ORDERED: TRAMADOL HCL 50 MG TABLET PO PRN (15:56)
[2018-08-01] MEDS ORDERED: LORAZEPAM INJ 2 MG/1 ML VIAL ONE (16:18)
[2018-08-01] MEDS: LORAZEPAM 1 MG TABLET PO SCH ×2 (18:03→22:12)
[2018-08-01] MEDS: ATORVASTATIN CALCIUM 20 MG TABLET PO SCH (22:12)
[2018-08-02] MEDS: LORAZEPAM INJ 2 MG/1 ML VIAL IV PRN ×6 (03:39→23:39)
[2018-08-02] MEDS: LORAZEPAM 1 MG TABLET PO SCH ×5 (06:12→23:00)
[2018-08-02] MEDS: OMEGA-3 ACID ETHYL ESTERS 1 GM CAPSULE PO SCH (08:35)
[2018-08-02] MEDS: DOFETILIDE 125 MCG CAPSULE PO SCH ×2 (08:35→20:13)
[2018-08-02] MEDS: FOLIC ACID 1 MG TABLET PO SCH (09:20)
[2018-08-02] MEDS: ASPIRIN 81 MG TABLET, ENT COATED PO SCH (09:20)
[2018-08-02] MEDS: THIAMINE HCL 100 MG TABLET PO SCH (09:20)
[2018-08-02] MEDS: FUROSEMIDE 40 MG TABLET PO SCH (09:20)
[2018-08-02] MEDS: APIXABAN 5 MG TABLET PO SCH (09:21)
[2018-08-02] MEDS: POTASSIUM CHLORIDE 10 MEQ CAPSULE.ER PO SCH (09:21)
[2018-08-02] MEDS: MAGNESIUM OXIDE 400 MG TABLET PO SCH (09:21)
[2018-08-02] MEDS: MULTIVITAMIN TABLET PO SCH (09:21)
[2018-08-02] MEDS: LOSARTAN POTASSIUM 50 MG TABLET PO SCH (09:21)
[2018-08-02 10:38] LABS: FREE T3 3.65 pg/mL (2.77-5.27); FREE T4 (FREE THYROXINE) 1.15 ng/dL (0.78-2.19)
[2018-08-02] MEDS ORDERED: METOPROLOL SUCCINATE 50 MG TAB.SR.24H PO SCH (12:00)
--- NOTE | 2018-08-02 13:25 | PDOC PROGRESS REPORT ---
Subjective Progress Note for:: 08/02/18 Subjective:: Elmer Box is a 73-year-old male who presented to the emergency room with a 12-hour history of agitation and tremulousness. 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 Since that time he has experienced chronic pain/discomfort in his chest and he has found that drinking about 27 ounces of vodka every day controls his pain. Since that time he has been drinking on a daily basis with the exception of a brief period of abstinence when he was hospitalized for a surgical procedure about 1 year ago. During that hospital course he was given Ativan to help with anxiety. He denies having any withdrawal symptoms in the past other than some anxiety and a little tremulousness but, since he stopped drinking approximately 48 hours prior to his admission, he has experienced gradually worsening and much more significant tremulousness and anxiety with agitation and (according to his some degree of confusion/delirium). This prompted them to come to the emergency room for evaluation and led to his subsequent admission to Dr. Cantu's service. He has a past medical history which includes a mitral valve repair and chronic atrial fibrillation and as such he is on chronic anticoagulation using Eliquis. 08/02/18: Mr. Box has continued to be fairly tremulous throughout his hospital course despite having received Ativan at increased dosages. There is no CIWA scale with an associated Ativan or Valium protocol available at this institution. Elmer admits that he does have moderate to severe tremulousness as well as tachycardia and hypertension with mild mental confusion and moderate irritability as well as restlessness. His is seen in the room with him and she concurs and the assessment however she would seem to indicate that his confusion irritability and restlessness are more severe than he acknowledged. On examination he is found to be mildly tachycardic at 104, moderately hypertensive at 144/98, and his CIWA score would be 20. With these findings I have increased his Ativan to 2 mg p.o. every 4 hours with Ativan 1 mg IV q. one hour as needed acute agitation or anxiety. Additionally metoprolol XL 100 mg p.o. daily was begun. I plan to reassess the therapeutic efficacy of this regimen later today and again tomorrow with changes made as needed. Reason For Visit: ETOH WITHDRAWAL,AFIB Physical Exam Vital Signs: Temp Pulse Resp BP Pulse Ox 98.1 F 98 16 142/99 H 97 08/02/18 11:49 08/02/18 11:49 08/02/18 11:49 08/02/18 11:49 08/02/18 11:49 Intake & Output 07/31/18 08/01/18 08/02/18 23:59 23:59 23:59 Intake Total 1222 2292 922 Output Total 250 300 Balance 972 1992 922 Weight 106.8 kg General appearance: PRESENT: cooperative, mild distress, well-developed, well- nourished, other - Anxious, fidgety, severely tremulous, mildly confused and Head exam: PRESENT: atraumatic, normocephalic Eye exam: PRESENT: conjunctival injection. ABSENT: nystagmus, periorbital swelling, scleral icterus Ear exam: PRESENT: normal external ear exam. ABSENT: drainage Mouth exam: PRESENT: neck supple, tongue midline Neck exam: ABSENT: JVD, thyromegaly, tracheal deviation Respiratory exam: PRESENT: clear to auscultation [place], symmetrical, unlabored Cardiovascular exam: PRESENT: clicks, gallop, irregular rhythm, systolic murmur - 1/6 to 2/6 systolic murmur at the apex. ABSENT: diastolic murmur, rubs Vascular exam: PRESENT: normal capillary refill. ABSENT: pallor GI/Abdominal exam: PRESENT: normal bowel sounds, soft Rectal exam: PRESENT: deferred Extremities exam: ABSENT: joint swelling, pedal edema Musculoskeletal exam: PRESENT: full ROM, normal inspection Neurological exam: PRESENT: alert, oriented to person, oriented to place, oriented to time, oriented to situation, CN II-XII grossly intact, other - Moderate to severe tremulousness noted in all extremities. ABSENT: motor sensory deficit Psychiatric exam: PRESENT: agitated - Mildly agitated and restless, anxious, other - Mild to moderate confusion/delirium Focused psych exam: PRESENT: psychomotor agitation, restlessness Skin exam: ABSENT: jaundice, rash, urticaria Results Laboratory Results: 08/01/18 05:12 08/01/18 05:12 08/02/18 09:51 Free T4 1.15 Free T3 pg/mL 3.65 Assessment & Plan - Diagnosis (1) Alcohol withdrawal Qualifiers: Complication of substance-induced condition: with unspecified complication Qualified Code(s): F10.239 - Alcohol dependence with withdrawal, unspecified Is this a current diagnosis for this admission?: Yes Plan: In the absence of a CIWA scale with an associated protocol, the patient will be treated with an accelerated Ativan schedule. He is started today on Ativan 2 mg p.o. every 4 hours and supplemental IV Ativan 1 mg every hour as needed agitation or anxiety. He will be continued on this scale for the next 24 hours and reassessed for reduction in dosage tomorrow. (2) Hypertension Qualifiers: Hypertension type: unspecified Qualified Code(s): I10 - Essential (primary ) hypertension Is this a current diagnosis for this admission?: Yes Plan: Patient's hypertension may well be part of his alcohol withdrawal but will require treatment nonetheless. Metoprolol XL 100 mg p.o. daily is started for therapeutic effect today. This may also help control his tachycardia which may again be part of his alcohol withdrawal syndrome. Efficacy of this therapy will be assessed tomorrow. (3) Paroxysmal atrial fibrillation Is this a current diagnosis for this admission?: Yes Plan: Patient has a long history of paroxysmal atrial fibrillation and today was definitely in atrial fibrillation with a reasonably well-controlled rate of 104. I have introduced metoprolol XL 100 mg p.o. daily in the his regimen today and will reassess the efficacy of this therapy on an ongoing basis. (4) Tachycardia Is this a current diagnosis for this admission?: Yes Plan: Tachycardia is most likely part of his alcohol withdrawal or may also be attributed to at least in part his paroxysmal atrial fibrillation. Treatment is started with metoprolol XL 100 mg p.o. daily and ongoing assessment of therapeutic effect will be made each day at his rounding visit. - Time Time Spent with patient: 25-34 minutes Medications reviewed and adjusted accordingly: Yes Anticipated discharge: Home
[2018-08-02] MEDS: ATORVASTATIN CALCIUM 20 MG TABLET PO SCH (23:00)
[2018-08-03] MEDS: LORAZEPAM 1 MG TABLET PO SCH ×6 (03:33→23:47)
[2018-08-03] MEDS: DOFETILIDE 125 MCG CAPSULE PO SCH ×2 (08:11→21:29)
[2018-08-03] MEDS: OMEGA-3 ACID ETHYL ESTERS 1 GM CAPSULE PO SCH (08:12)
[2018-08-03] MEDS: FUROSEMIDE 40 MG TABLET PO SCH (09:57)
[2018-08-03] MEDS: LOSARTAN POTASSIUM 50 MG TABLET PO SCH (09:57)
[2018-08-03] MEDS: ASPIRIN 81 MG TABLET, ENT COATED PO SCH (09:57)
[2018-08-03] MEDS: MAGNESIUM OXIDE 400 MG TABLET PO SCH (09:57)
[2018-08-03] MEDS: APIXABAN 5 MG TABLET PO SCH (09:57)
[2018-08-03] MEDS: POTASSIUM CHLORIDE 10 MEQ CAPSULE.ER PO SCH (09:57)
[2018-08-03] MEDS: MULTIVITAMIN TABLET PO SCH (09:57)
[2018-08-03] MEDS: FOLIC ACID 1 MG TABLET PO SCH (09:57)
[2018-08-03] MEDS: METOPROLOL SUCCINATE 50 MG TAB.SR.24H PO SCH (09:58)
[2018-08-03] MEDS: THIAMINE HCL 100 MG TABLET PO SCH (10:01)
--- NOTE | 2018-08-03 12:50 | PDOC PROGRESS REPORT ---
Subjective Progress Note for:: 08/03/18 Subjective:: Elmer Box is a 73-year-old male who presented to the emergency room with a 12-hour history of agitation and tremulousness. 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 Since that time he has experienced chronic pain/discomfort in his chest and he has found that drinking about 27 ounces of vodka every day controls his pain. Since that time he has been drinking on a daily basis with the exception of a brief period of abstinence when he was hospitalized for a surgical procedure about 1 year ago. During that hospital course he was given Ativan to help with anxiety. He denies having any withdrawal symptoms in the past other than some anxiety and a little tremulousness but, since he stopped drinking approximately 48 hours prior to his admission, he has experienced gradually worsening and much more significant tremulousness and anxiety with agitation and (according to his some degree of confusion/delirium). This prompted them to come to the emergency room for evaluation and led to his subsequent admission to Dr. Cantu's service. He has a past medical history which includes a mitral valve repair and chronic atrial fibrillation and as such he is on chronic anticoagulation using Eliquis. 08/02/18: Mr. Box has continued to be fairly tremulous throughout his hospital course despite having received Ativan at increased dosages. There is no CIWA scale with an associated Ativan or Valium protocol available at this institution. Elmer admits that he does have moderate to severe tremulousness as well as tachycardia and hypertension with mild mental confusion and moderate irritability as well as restlessness. His is seen in the room with him and she concurs and the assessment however she would seem to indicate that his confusion, irritability and restlessness are more severe than he acknowledged. On examination he is found to be mildly tachycardic at 104, moderately hypertensive at 144/98, and his CIWA score would be 20. With these findings I have increased his Ativan to 2 mg p.o. every 4 hours with Ativan 1 mg IV q. one hour as needed acute agitation or anxiety. Additionally metoprolol XL 100 mg p.o. daily was begun. I plan to reassess the therapeutic efficacy of this regimen later today and again tomorrow with changes made as needed. 08/03/18: Elmer states that he feels considerably better today. His tremor is significantly decreased and he is more mentally alert and less irritable. His restlessness and confusion have resolved. On evaluation he has a CIWA score of 8. The patient's daily laboratory values are unremarkable. I have discussed his diagnosis and treatment extensively with the patient and his as they had numerous questions that they wanted to have answered. Additionally his tachycardia and hypertension have been substantially improved since starting him on metoprolol XL and the dose will be increased today to 200 mg p.o. daily, which I believe will provide adequate control of his hypertension and improve the control of his tachycardia. He will be continued on 2 mg of Ativan every 4 hours through the remainder of today and the IV Ativan 1 mg every 4 hours dosage for as needed usage will be available if required. I would recommend a gradual tapering of his Ativan starting tomorrow (08/03/18) with 2 mg 4 times daily times 2 days, then 2 mg 3 times daily times 2 days, then 1 mg 3 times daily times 2 days, then 1/2 mg 3 times daily times 2 days, at that point therapy could be discontinued or continued at the same level thereafter. Reason For Visit: ETOH WITHDRAWAL,AFIB Physical Exam Vital Signs: Temp Pulse Resp BP Pulse Ox 98.0 F 73 16 138/86 H 95 08/03/18 08:00 08/03/18 08:00 08/03/18 08:00 08/03/18 08:00 08/03/18 08:00 Intake & Output 08/01/18 08/02/18 08/03/18 23:59 23:59 23:59 Intake Total 2292 1871 Output Total 300 Balance 1991 1870 Weight 106.8 kg 104.5 kg General appearance: PRESENT: no acute distress, cooperative Head exam: PRESENT: atraumatic, normocephalic Eye exam: ABSENT: conjunctival injection, scleral icterus Ear exam: PRESENT: normal external ear exam. ABSENT: drainage Mouth exam: PRESENT: neck supple, tongue midline Neck exam: ABSENT: thyromegaly, tracheal deviation Respiratory exam: PRESENT: clear to auscultation [place], symmetrical, unlabored Cardiovascular exam: PRESENT: RRR. ABSENT: bradycardia, clicks, gallop, rubs, tachycardia Vascular exam: PRESENT: normal capillary refill. ABSENT: pallor GI/Abdominal exam: PRESENT: [place] bowel [place] - [address], soft Rectal exam: PRESENT: deferred Extremities exam: ABSENT: joint swelling, pedal edema Musculoskeletal exam: PRESENT: full ROM, normal inspection Neurological exam: PRESENT: alert, oriented to person, oriented to place, oriented to time, oriented to situation, CN II-XII grossly intact, other - Tremor is mild in all extremities, and only noted at full extension.. ABSENT: motor sensory deficit Psychiatric exam: PRESENT: appropriate affect, normal mood Skin exam: ABSENT: jaundice, rash, urticaria Results Laboratory Results: 08/01/18 05:12 08/01/18 05:12 Assessment & Plan - Diagnosis (1) Alcohol withdrawal Qualifiers: Complication of substance-induced condition: with unspecified complication Qualified Code(s): F10.239 - Alcohol dependence with withdrawal, unspecified Is this a current diagnosis for this admission?: Yes Plan: In the absence of a CIWA scale with an associated protocol, the patient will be treated with an accelerated Ativan schedule. He is started today on Ativan 2 mg p.o. every 4 hours and supplemental IV Ativan 1 mg every hour as needed agitation or anxiety. He will be continued on this scale for the next 24 hours and reassessed for reduction in dosage tomorrow. 08/03/18: Elmer has responded very well to his current dosage of Ativan and as such I will continue that dosage today and the IV Ativan 1 mg every 4 hours dosage for as needed usage will be available if required. I would recommend a gradual tapering of his Ativan starting tomorrow (08/03/18) with 2 mg 4 times daily times 2 days, then 2 mg 3 times daily times 2 days, then 1 mg 3 times daily times 2 days, then 1/2 mg 3 times daily times 2 days, at that point therapy could be discontinued or continued at the same level thereafter. (2) Hypertension Qualifiers: Hypertension type: unspecified Qualified Code(s): I10 - Essential (primary ) hypertension Is this a current diagnosis for this admission?: Yes Plan: Patient's hypertension may well be part of his alcohol withdrawal but will require treatment nonetheless. Metoprolol XL 100 mg p.o. daily is started for therapeutic effect today. This may also help control his tachycardia which may again be part of his alcohol withdrawal syndrome. Efficacy of this therapy will be assessed tomorrow. 08/03/18: Please blood pressure has responded reasonably well to initiation of therapy with metoprolol XL 100 mg daily. Patient continues to run moderately hypertensive and his pulse rate is in the 80s and 90s indicating incomplete beta -blockade. To this and the patient will have his metoprolol XL dosage increased to 200 mg p.o. daily and this should be continued in his post hospital care. (3) Paroxysmal atrial fibrillation Is this a current diagnosis for this admission?: Yes Plan: Patient has a long history of paroxysmal atrial fibrillation and today was definitely in atrial fibrillation with a reasonably well-controlled rate of 104. I have introduced metoprolol XL 100 mg p.o. daily in the his regimen today and will reassess the efficacy of this therapy on an ongoing basis. 08/03/18: Elmer's heart rate was in the 80s today and his heart rate is very regular with a very regular pulse indicating that he is back in normal sinus rhythm. I will increase his metoprolol XL to 200 mg p.o. daily as I believe this will provide better rate control and most likely help maintain his normal sinus rhythm more effectively than the lower dose. (4) Tachycardia Is this a current diagnosis for this admission?: Yes Plan: Tachycardia is most likely part of his alcohol withdrawal or may also be attributed to at least in part his paroxysmal atrial fibrillation. Treatment is started with metoprolol XL 100 mg p.o. daily and ongoing assessment of therapeutic effect will be made each day at his rounding visit. 08/03/18: Leaves tachycardia has been significantly decreased with the initiation of beta- georgi therapy. As previously noted his metoprolol XL will be increased to 200 mg p.o. daily today and this will be continued on a daily basis throughout the remainder of his hospital course and should also be continued as an outpatient. - Time Time Spent with patient: 25-34 minutes Anticipated discharge: Home Within: within 48 hours
[2018-08-03] MEDS: ATORVASTATIN CALCIUM 20 MG TABLET PO SCH (21:29)
[2018-08-04] MEDS: LORAZEPAM 1 MG TABLET PO SCH ×5 (03:49→23:44)
[2018-08-04] MEDS: LORAZEPAM INJ 2 MG/1 ML VIAL IV PRN ×4 (08:00→18:40)
[2018-08-04] MEDS: DOFETILIDE 125 MCG CAPSULE PO SCH ×2 (08:36→20:06)
[2018-08-04] MEDS: OMEGA-3 ACID ETHYL ESTERS 1 GM CAPSULE PO SCH (08:36)
--- NOTE | 2018-08-04 08:56 | PDOC PROGRESS REPORT ---
Subjective Progress Note for:: 08/04/18 Subjective:: The patient appears to be very unsteady on his feet. He has to ambulate with one-person assist and a walker. He still appears to be very shaky. Discussed with the patient and his about possible rehab either at the alcohol rehab center or [facility]. Reason For Visit: ETOH WITHDRAWAL,AFIB Physical Exam Vital Signs: Temp Pulse Resp BP Pulse Ox 97.3 F 74 16 150/88 H 97 08/04/18 07:36 08/04/18 07:36 08/04/18 07:36 08/04/18 07:36 08/04/18 07:36 Intake & Output 08/03/18 08/04/18 08/05/18 06:59 06:59 06:59 Intake Total 949 1056 Balance 949 1056 Weight 104.5 kg 106.7 kg General appearance: PRESENT: mild distress Head exam: PRESENT: atraumatic Eye exam: PRESENT: conjunctival injection Neck exam: ABSENT: carotid bruit, JVD Respiratory exam: PRESENT: crackles Cardiovascular exam: PRESENT: +S1, +S2, tachycardia GI/Abdominal exam: PRESENT: normal bowel sounds, soft Extremities exam: PRESENT: tenderness Musculoskeletal exam: PRESENT: tenderness Neurological exam: PRESENT: alert, awake, ataxia Psychiatric exam: PRESENT: anxious, flat affect Results Laboratory Results: 08/01/18 05:12 08/01/18 05:12 Assessment & Plan - Diagnosis (1) Paroxysmal atrial fibrillation Is this a current diagnosis for this admission?: Yes Plan: We will continue monitoring and continue current medication (2) Alcohol withdrawal Qualifiers: Complication of substance-induced condition: with unspecified complication Qualified Code(s): F10.239 - Alcohol dependence with withdrawal, unspecified Is this a current diagnosis for this admission?: Yes Plan: We will continue with Ativan. Will add gabapentin. Discussed with the patient and the family about alcohol rehab versus short-term rehab. They are agreeing to both. (3) Hypertension Qualifiers: Hypertension type: unspecified Qualified Code(s): I10 - Essential (primary ) hypertension Is this a current diagnosis for this admission?: Yes Plan: We will continue current medications (4) Tachycardia Is this a current diagnosis for this admission?: Yes Plan: Most probably due to alcohol withdrawal
[2018-08-04] MEDS: FOLIC ACID 1 MG TABLET PO SCH (10:49)
[2018-08-04] MEDS: FUROSEMIDE 40 MG TABLET PO SCH ×2 (10:49→18:40)
[2018-08-04] MEDS: ASPIRIN 81 MG TABLET, ENT COATED PO SCH (10:49)
[2018-08-04] MEDS: POTASSIUM CHLORIDE 10 MEQ CAPSULE.ER PO SCH (10:49)
[2018-08-04] MEDS: MULTIVITAMIN TABLET PO SCH (10:49)
[2018-08-04] MEDS: MAGNESIUM OXIDE 400 MG TABLET PO SCH (10:49)
[2018-08-04] MEDS: APIXABAN 5 MG TABLET PO SCH (10:49)
[2018-08-04] MEDS: LOSARTAN POTASSIUM 50 MG TABLET PO SCH (10:50)
[2018-08-04] MEDS: METOPROLOL SUCCINATE 50 MG TAB.SR.24H PO SCH (10:50)
[2018-08-04] MEDS: THIAMINE HCL 100 MG TABLET PO SCH (10:50)
[2018-08-04] MEDS: GABAPENTIN 100 MG CAPSULE PO SCH ×2 (14:08→22:21)
[2018-08-04] MEDS: ATORVASTATIN CALCIUM 20 MG TABLET PO SCH (22:21)
[2018-08-05] MEDS: LORAZEPAM 1 MG TABLET PO SCH ×2 (03:44→09:29)
[2018-08-05 05:10] LABS: ABSOLUTE BASOPHILS # (AUTO) 0.1 10^3/uL (0.0-0.2); ABSOLUTE EOSINOPHILS # (AUTO) 0.1 10^3/uL (0.0-0.6); ABSOLUTE LYMPHOCYTES (AUTO) 1.2 10^3/uL (0.5-4.7); ABSOLUTE MONOCYTES (AUTO) 0.7 10^3/uL (0.1-1.4); ABSOLUTE NEUT (AUTO) 2.7 10^3/uL (1.7-8.2); BASOPHILS % (AUTO) 1.3 % (0-2); EOSINOPHILS % (AUTO) 2.8 % (0-6); HEMATOCRIT 37.4 % (37.9-51.0); HEMOGLOBIN 13.1 g/dL (13.5-17.0); LYMPHOCYTES % (AUTO) 25.2 % (13-45); MEAN CORPUSCULAR HEMOGLOBIN 34.1 pg (27.0-33.4); MEAN CORPUSCULAR VOLUME 98 fl (80-97); MONOCYTES % (AUTO) 15.2 % (3-13); PLATELET COUNT 199 10^3/uL (150-450); RED BLOOD COUNT 3.84 10^6/uL (4.35-5.55); RED CELL DISTRIBUTION WIDTH 12.9 % (11.5-14.0); SEGMENTED NEUTROPHILS % (AUTO) 55.5 % (42-78); TOTAL CELLS COUNTED % (AUTO) 100 %; WHITE BLOOD COUNT 4.8 10^3/uL (4.0-10.5)
[2018-08-05 05:12] LABS: ALANINE AMINOTRANSFERASE 62 U/L (21-72); ALBUMIN 3.5 g/dL (3.5-5.0); ALKALINE PHOSPHATASE 86 U/L (38-126); ANION GAP 11 (5-19); ASPARTATE AMINO TRANSFERASE 54 U/L (17-59); BILIRUBIN,DIRECT 0.4 mg/dL (0.0-0.4); BILIRUBIN,TOTAL 1.3 mg/dL (0.2-1.3); BLOOD UREA NITROGEN 22 mg/dL (7-20); CARBON DIOXIDE 22 mmol/L (22-30); CHLORIDE 106 mmol/L (98-107); GLUCOSE 101 mg/dL (75-110); POTASSIUM 3.9 mmol/L (3.6-5.0); SODIUM 139.1 mmol/L (137-145); TOTAL PROTEIN 6.4 g/dL (6.3-8.2)
[2018-08-05] MEDS: GABAPENTIN 100 MG CAPSULE PO SCH (06:10)
--- NOTE | 2018-08-05 08:34 | PDOC DISCHARGE SUMMARY ---
General - Admit/Disc Date/PCP Admission Date/Primary Care Provider: 07/31/18 10:44 ADRIANA CRUZ MD Discharge Date: 08/05/18 - Discharge Diagnosis (1) Paroxysmal atrial fibrillation Is this a current diagnosis for this admission?: Yes Summary: Continue current medications and follow-up with cardiology (2) Alcohol withdrawal Is this a current diagnosis for this admission?: Yes Summary: Continue lorazepam and gabapentin. Follow-up with psychiatry in 2 days for initiation of withdrawal from and weaning from lorazepam (3) Hypertension Is this a current diagnosis for this admission?: Yes Summary: Continue current medications (4) Tachycardia Is this a current diagnosis for this admission?: Yes Summary: Continue current medication - Additional Information Resuscitation Status: Full Code Discharge Diet: Cardiac Discharge Activity: Activity As Tolerated Prescriptions: Folic Acid [Folvite 1 mg Tablet] 1 mg PO DAILY #90 tablet Gabapentin [Neurontin 100 mg Capsule] 100 mg PO Q8 #90 capsule Thiamine HCl [Thiamine 100 mg Tablet] 100 mg PO DAILY #90 tablet Home Medications: Aspirin [Aspirin EC] 81 mg PO DAILY 07/31/18 Atorvastatin Calcium [Lipitor 20 mg Tablet] 20 mg PO QHS 07/31/18 Dofetilide [Tikosyn] 250 mcg PO 0800,2000 07/31/18 Furosemide [Lasix 40 mg Tablet] 40 mg PO QAM 07/31/18 Glucosamine/Chondroiti/Thfv299 [Cosamin Asu Capsule] 2 each PO DAILY 07/31/18 Magnesium Oxide [Mag-Ox 400 mg Tablet] 400 mg PO DAILY 07/31/18 Multivitamin [Tab-A-Candido] 1 each PO DAILY 07/31/18 [place]-3S/Dha/Epa/Fish Oil [Fish Oil [place]-3 Softgel] 1 each PO DAILY 07/31/18 Potassium Chloride [Klor-Con M20] 40 meq PO DAILY 07/31/18 Telmisartan [Micardis 80 mg Tablet] 160 mg PO DAILY 07/31/18 Apixaban [Eliquis 5 mg Tablet] 5 mg PO BID #0 08/05/18 Folic Acid [Folvite 1 mg Tablet] 1 mg PO DAILY #90 tablet 08/05/18 Gabapentin [Neurontin 100 mg Capsule] 100 mg PO Q8 #90 capsule 08/05/18 Lorazepam [Ativan 1 mg Tablet] 2 mg PO Q4H tablet 08/05/18 Metoprolol Succinate [Toprol Xl 50 mg Tab.sr] 200 mg PO DAILY tab.sr.24h Thiamine HCl [Thiamine 100 mg Tablet] 100 mg PO DAILY #90 tablet 08/05/18 History of Present Illness History of Present Illness: ANGEL HILLIARD is a 73 year old male Hospital Course Hospital Course: The patient was admitted with a possible alcohol withdrawal and impending DTs. He was started on Ativan protocol. He appeared to be very shaky. He eventually has improved slowly but was very unsteady on his feet. Discussed with the patient and the about the possibility of transferring to alcohol rehab. The patient was started on gabapentin which apparently has improved his symptomatology. The wants to take the responsibility of taking him home because she thinks that he is going to do much better mentally and she has already an appointment with a psychiatrist in 2 days. Discussed the option of using physical therapy to improve his strength. Physical Exam Vital Signs: Temp Pulse Resp BP Pulse Ox 97.5 F 61 18 138/96 H 97 08/05/18 07:42 08/05/18 07:42 08/05/18 07:42 08/05/18 07:42 08/05/18 07:42 Intake & Output 08/04/18 08/05/18 08/06/18 06:59 06:59 06:59 Intake Total 1056 2222 Balance 1056 2222 Weight 106.7 kg 107.7 kg General appearance: PRESENT: no acute distress Head exam: PRESENT: atraumatic Eye exam: PRESENT: conjunctiva pink Neck exam: PRESENT: carotid bruit. ABSENT: JVD Respiratory exam: PRESENT: clear to auscultation [place] Cardiovascular exam: PRESENT: irregular rhythm, +S1, +S2 Pulses: PRESENT: +1 pedal pulses bilateral GI/Abdominal exam: PRESENT: normal bowel sounds, soft Extremities exam: PRESENT: full ROM, tenderness Musculoskeletal exam: PRESENT: ambulatory Neurological exam: PRESENT: alert, awake, oriented to person, oriented to place , oriented to time, ataxia Psychiatric exam: PRESENT: appropriate affect Results Laboratory Results: 08/05/18 04:14 08/05/18 04:14 08/05/18 08/05/18 08/05/18 04:14 04:14 04:14 WBC 4.8 RBC 3.84 L Hgb 13.1 L Hct 37.4 L MCV 98 H MCH 34.1 H MCHC 35.0 RDW 12.9 Plt Count 199 Seg Neutrophils % 55.5 Lymphocytes % 25.2 Monocytes % 15.2 H Eosinophils % 2.8 Basophils % 1.3 Absolute Neutrophils 2.7 Absolute Lymphocytes 1.2 Absolute Monocytes 0.7 Absolute Eosinophils 0.1 Absolute Basophils 0.1 Sodium 139.1 Potassium 3.9 Chloride 106 Carbon Dioxide 22 Anion Gap 11 BUN 22 H Creatinine 0.85 Est GFR ( Amer) > 60 Est GFR (Non-Af Amer) > 60 Glucose 101 Calcium 9.0 Magnesium 1.8 Total Bilirubin 1.3 AST 54 ALT 62 Alkaline Phosphatase 86 Total Protein 6.4 Albumin 3.5 TSH 4.24 Qualifiers - * PATIENT BEING DISCHARGED WITH ANY OF THE FOLLOWING DIAGNOSIS: No
[2018-08-05 09:14] VITALS: BP 147/98
[2018-08-05] MEDS: FUROSEMIDE 40 MG TABLET PO SCH (09:29)
[2018-08-05] MEDS: LOSARTAN POTASSIUM 50 MG TABLET PO SCH (09:29)
[2018-08-05] MEDS: APIXABAN 5 MG TABLET PO SCH (09:29)
[2018-08-05] MEDS: METOPROLOL SUCCINATE 50 MG TAB.SR.24H PO SCH (09:29)
[2018-08-05] MEDS: FOLIC ACID 1 MG TABLET PO SCH (09:29)
[2018-08-05] MEDS: OMEGA-3 ACID ETHYL ESTERS 1 GM CAPSULE PO SCH (09:30)
[2018-08-05] MEDS: ASPIRIN 81 MG TABLET, ENT COATED PO SCH (09:30)
[2018-08-05] MEDS: POTASSIUM CHLORIDE 10 MEQ CAPSULE.ER PO SCH (09:30)
[2018-08-05] MEDS: THIAMINE HCL 100 MG TABLET PO SCH (09:30)
[2018-08-05] MEDS: MULTIVITAMIN TABLET PO SCH (09:30)
[2018-08-05] MEDS: DOFETILIDE 125 MCG CAPSULE PO SCH (09:35)
[2018-08-05] MEDS: MAGNESIUM OXIDE 400 MG TABLET PO SCH (09:35)
[2018-08-05 13:44] LABS: VITAMIN B1 (THIAMINE) 235.1 nmol/L (66.5-200.0)
[2018-08-06 08:02] LABS: VITAMIN B6 22.6 ug/L (5.3-46.7)
== END 2018-08-05 10:26 | disposition home or self-care (01) | DRG 897 ==
LOC: ER 08:31 → EH 10:44 → 3S 12:34 → 3N 08-04 14:01
PROVIDERS: ADMIT Internal Medicine; ATTEND Internal Medicine
PROC: 3E0234Z Introduction of Serum, Toxoid and Vaccine into Muscle, Percutaneous Approach (ICD-10-PCS; principal; 2018-08-05)
DX: F10.239 Alcohol dependence with withdrawal, unspecified (principal); I48.0 Paroxysmal atrial fibrillation; I10 Essential (primary) hypertension; R00.0 Tachycardia, unspecified; Y90.0 Blood alcohol level of less than 20 mg/100 ml; Z79.01 Long term (current) use of anticoagulants; Z85.46 Personal history of malignant neoplasm of prostate; Z90.79 Acquired absence of other genital organ(s); Z23 Encounter for immunization
CPT/HCPCS: 36415; 80053; 80307; 82607; 82746; 83690; 83735; 84207; 84425; 84439; 84443; 84481; 84484; 85025; 90686; 93005; 93010; 96361; 96374; 99285; G8978-GP; G8979-GP; J1940; J2060; J3411; J3475; J3480; J3490; J7030

== ENCOUNTER → 2018-12-19 | Outpatient (CLI) | payer MEDICARE, BC, OTHER ==
[2018-12-19 12:01] LABS: FOLATE > 20.00 ng/mL (>2.76)
== END ==
LOC: OD 09:35
PROVIDERS: ATTEND Specialist
DX: G25.81 Restless legs syndrome (principal); D50.9 Iron deficiency anemia, unspecified
CPT/HCPCS: 36415; 82306; 82607; 82728; 82746

== ENCOUNTER → 2020-03-16 | Outpatient (CLI) | payer MEDICARE, BC, OTHER ==
[2020-03-16 08:15] LABS: ABSOLUTE EOSINOPHILS # (AUTO) 0.1 10^3/uL (0.0-0.6); ABSOLUTE MONOCYTES (AUTO) 0.5 10^3/uL (0.1-1.4); ABSOLUTE NEUT (AUTO) 3.2 10^3/uL (1.7-8.2); BASOPHILS % (AUTO) 0.8 % (0-2); EOSINOPHILS % (AUTO) 2.2 % (0-6); HEMATOCRIT 40.9 % (37.9-51.0); HEMOGLOBIN 14.3 g/dL (13.5-17.0); LYMPHOCYTES % (AUTO) 34.2 % (13-45); MEAN CORPUSCULAR HEMOGLOBIN 31.5 pg (27.0-33.4); MEAN CORPUSCULAR HGB CONC 34.9 g/dL (32.0-36.0); MEAN CORPUSCULAR VOLUME 90 fl (80-97); MONOCYTES % (AUTO) 8.4 % (3-13); PLATELET COUNT 196 10^3/uL (150-450); RED BLOOD COUNT 4.53 10^6/uL (4.35-5.55); SEGMENTED NEUTROPHILS % (AUTO) 54.4 % (42-78); TOTAL CELLS COUNTED % (AUTO) 100 %; WHITE BLOOD COUNT 5.9 10^3/uL (4.0-10.5)
[2020-03-16 08:25] LABS: ALBUMIN 4.4 g/dL (3.5-5.0); ALKALINE PHOSPHATASE 72 U/L (38-126); ANION GAP 7 (5-19); ASPARTATE AMINO TRANSFERASE 33 U/L (17-59); BILIRUBIN,TOTAL 1.1 mg/dL (0.2-1.3); BLOOD UREA NITROGEN 23 mg/dL (7-20); CALCIUM 9.2 mg/dL (8.4-10.2); CARBON DIOXIDE 29 mmol/L (22-30); CHLORIDE 103 mmol/L (98-107); CHOLESTEROL 130.86 mg/dL (0-200); GLUCOSE 109 mg/dL (75-110); POTASSIUM 5.2 mmol/L (3.6-5.0); TOTAL PROTEIN 7.2 g/dL (6.3-8.2); TRIGLYCERIDES 77 mg/dL (<150)
[2020-03-16 08:36] LABS: DIRECT LDL 72 mg/dL (<100)
[2020-03-16 09:01] LABS: PROSTATE SPECIFIC ANTIGEN < 0.060 ng/mL (<4.00)
== END ==
LOC: OD 07:02
PROVIDERS: ATTEND Internal Medicine
DX: I10 Essential (primary) hypertension (principal); E78.5 Hyperlipidemia, unspecified; R35.1 Nocturia; R53.83 Other fatigue
CPT/HCPCS: 36415; 80053; 80061; 84153; 84443; 85025

== ENCOUNTER → 2020-03-23 | Outpatient (CLI) | payer MEDICARE, BC, OTHER ==
--- NOTE | 2020-03-23 14:32 | RADIOLOGY REPORT (SQ) ---
EXAM DESCRIPTION: CT HEAD COMBO; CTA HEAD; CTA NECK IMAGES COMPLETED DATE/TIME: 03/23/2020 2:06 pm; 03/23/2020 2:07 pm REASON FOR STUDY: H53.2 DIPLOPIA, R20.0 ANESTHESIA OF SKIN H53.2 DIPLOPIA R20.0 ANESTHESIA OF SKIN COMPARISON: CT brain 03/23/2020, 07/16/2012 TECHNIQUE: Axial images acquired through the brain without and with intravenous contrast. Images re viewed with bone, brain and subdural windows. Additional sagittal and coronal reconstructions were g enerated. Images stored on PACS. Axial dynamic scanning technique with dynamic contrast enhancement through the extra-cranial carotid and vertebral arteries. Multiplanar reconstruction. 3-D MIPS and Volume-rendered images acquired at the workstation and saved to PACS. Images are reviewed in soft tissue, bone, lung windows. Axial dynamic scanning technique with dynamic contrast enhancement through the intra-cranial carotid and vertebral arteries. Multiplanar reconstruction. 3-D MIPS and Volume-rendered images acquired at the workstation and saved to PACS. Images are reviewed in soft tissue, bone, lung windows. All CT scanners at this facility use dose modulation, iterative reconstruction, and/or weight based d osing when appropriate to reduce radiation dose to as low as reasonably achievable (ALARA). [facility]: Dose Right [facility]: CareDose [facility]: Dose Right [facility]: Teradose 4D [facility]: Differential CONTRAST TYPE AND DOSE: 80.5 mL of IV Omnipaque 350- low osmolar. RENAL FUNCTION: Creatinine 0.85 RADIATION DOSE: CT Rad equipment meets quality standard of care and radiation dose reduction techniq ues were employed. CTDIvol: NaN - NaN mGy. DLP: 0 mGy-cm.. LIMITATIONS: None. FINDINGS: VENTRICLES: Normal size and contour. CEREBRUM: No masses. No hemorrhage. No midline shift. Normal [place]/white matter differentiation. No ev idence for acute infarction. No enhancing lesions. CEREBELLUM: No masses. No hemorrhage. No alteration of density. No evidence for acute infarction. No enhancing lesions. EXTRA-AXIAL SPACES: No fluid collections. No enhancing lesions. ORBITS AND GLOBE: No intra- or extraconal masses. Post cataract surgery bilaterally CALVARIUM: No fracture. PARANASAL SINUSES: Chronic opacification of left maxillary sinus with dense dried secretions SOFT TISSUES: No mass or hematoma. CTA neck: Bilateral common carotid arteries, carotid bifurcations, cervical internal carotid arteries are widel y patent. Codominant vertebral arteries. No dissection. No significant cervical adenopathy or neck mass and. Upper arrow digestive tract unremarkable. Lung clear. Mild degenerative changes cervical spine. Left-sided pacemaker. CTA [place]: No [place] stenosis, vascular malformation, or aneurysm. IMPRESSION: NORMAL BRAIN CT WITHOUT AND WITH CONTRAST. Unremarkable CTA [place]. Unremarkable CT angio neck/carotid and vertebral arteries EVIDENCE OF ACUTE STROKE: NO. TECHNICAL DOCUMENTATION: JOB ID: [id number] Quality ID # [id number]: Final reports with documentation of one or more dose reduction techniques (e.g., Au tomated exposure control, adjustment of the mA and/or kV according to patient size, use of iterative reconstruction technique) 2010 [employer]- All Rights Reserved Reading location - IP/workstation name: [email or web address]
--- NOTE | 2020-03-23 14:32 | RADIOLOGY REPORT (SQ) ---
EXAM DESCRIPTION: CT HEAD COMBO; CTA HEAD; CTA NECK IMAGES COMPLETED DATE/TIME: 03/23/2020 2:06 pm; 03/23/2020 2:07 pm REASON FOR STUDY: H53.2 DIPLOPIA, R20.0 ANESTHESIA OF SKIN H53.2 DIPLOPIA R20.0 ANESTHESIA OF SKIN COMPARISON: CT brain 03/23/2020, 07/16/2012 TECHNIQUE: Axial images acquired through the brain without and with intravenous contrast. Images re viewed with bone, brain and subdural windows. Additional sagittal and coronal reconstructions were g enerated. Images stored on PACS. Axial dynamic scanning technique with dynamic contrast enhancement through the extra-cranial carotid and vertebral arteries. Multiplanar reconstruction. 3-D MIPS and Volume-rendered images acquired at the workstation and saved to PACS. Images are reviewed in soft tissue, bone, lung windows. Axial dynamic scanning technique with dynamic contrast enhancement through the intra-cranial carotid and vertebral arteries. Multiplanar reconstruction. 3-D MIPS and Volume-rendered images acquired at the workstation and saved to PACS. Images are reviewed in soft tissue, bone, lung windows. All CT scanners at this facility use dose modulation, iterative reconstruction, and/or weight based d osing when appropriate to reduce radiation dose to as low as reasonably achievable (ALARA). [facility]: Dose Right [facility]: CareDose [facility]: Dose Right [facility]: Teradose 4D [facility]: LocBox CONTRAST TYPE AND DOSE: 80.5 mL of IV Omnipaque 350- low osmolar. RENAL FUNCTION: Creatinine 0.85 RADIATION DOSE: CT Rad equipment meets quality standard of care and radiation dose reduction techniq ues were employed. CTDIvol: NaN - NaN mGy. DLP: 0 mGy-cm.. LIMITATIONS: None. FINDINGS: VENTRICLES: Normal size and contour. CEREBRUM: No masses. No hemorrhage. No midline shift. Normal [place]/white matter differentiation. No ev idence for acute infarction. No enhancing lesions. CEREBELLUM: No masses. No hemorrhage. No alteration of density. No evidence for acute infarction. No enhancing lesions. EXTRA-AXIAL SPACES: No fluid collections. No enhancing lesions. ORBITS AND GLOBE: No intra- or extraconal masses. Post cataract surgery bilaterally CALVARIUM: No fracture. PARANASAL SINUSES: Chronic opacification of left maxillary sinus with dense dried secretions SOFT TISSUES: No mass or hematoma. CTA neck: Bilateral common carotid arteries, carotid bifurcations, cervical internal carotid arteries are widel y patent. Codominant vertebral arteries. No dissection. No significant cervical adenopathy or neck mass and. Upper arrow digestive tract unremarkable. Lung clear. Mild degenerative changes cervical spine. Left-sided pacemaker. CTA [place]: No [place] stenosis, vascular malformation, or aneurysm. IMPRESSION: NORMAL BRAIN CT WITHOUT AND WITH CONTRAST. Unremarkable CTA [place]. Unremarkable CT angio neck/carotid and vertebral arteries EVIDENCE OF ACUTE STROKE: NO. TECHNICAL DOCUMENTATION: JOB ID: [id number] Quality ID # [id number]: Final reports with documentation of one or more dose reduction techniques (e.g., Au tomated exposure control, adjustment of the mA and/or kV according to patient size, use of iterative reconstruction technique) 2010 [employer]- All Rights Reserved Reading location - IP/workstation name: [email or web address]
--- NOTE | 2020-03-23 14:32 | RADIOLOGY REPORT (SQ) ---
EXAM DESCRIPTION: CT HEAD COMBO; CTA HEAD; CTA NECK IMAGES COMPLETED DATE/TIME: 03/23/2020 2:06 pm; 03/23/2020 2:07 pm REASON FOR STUDY: H53.2 DIPLOPIA, R20.0 ANESTHESIA OF SKIN H53.2 DIPLOPIA R20.0 ANESTHESIA OF SKIN COMPARISON: CT brain 03/23/2020, 07/16/2012 TECHNIQUE: Axial images acquired through the brain without and with intravenous contrast. Images re viewed with bone, brain and subdural windows. Additional sagittal and coronal reconstructions were g enerated. Images stored on PACS. Axial dynamic scanning technique with dynamic contrast enhancement through the extra-cranial carotid and vertebral arteries. Multiplanar reconstruction. 3-D MIPS and Volume-rendered images acquired at the workstation and saved to PACS. Images are reviewed in soft tissue, bone, lung windows. Axial dynamic scanning technique with dynamic contrast enhancement through the intra-cranial carotid and vertebral arteries. Multiplanar reconstruction. 3-D MIPS and Volume-rendered images acquired at the workstation and saved to PACS. Images are reviewed in soft tissue, bone, lung windows. All CT scanners at this facility use dose modulation, iterative reconstruction, and/or weight based d osing when appropriate to reduce radiation dose to as low as reasonably achievable (ALARA). [facility]: Dose Right [facility]: CareDose [facility]: Dose Right [facility]: Teradose 4D [facility]: IncreaseCard CONTRAST TYPE AND DOSE: 80.5 mL of IV Omnipaque 350- low osmolar. RENAL FUNCTION: Creatinine 0.85 RADIATION DOSE: CT Rad equipment meets quality standard of care and radiation dose reduction techniq ues were employed. CTDIvol: NaN - NaN mGy. DLP: 0 mGy-cm.. LIMITATIONS: None. FINDINGS: VENTRICLES: Normal size and contour. CEREBRUM: No masses. No hemorrhage. No midline shift. Normal [place]/white matter differentiation. No ev idence for acute infarction. No enhancing lesions. CEREBELLUM: No masses. No hemorrhage. No alteration of density. No evidence for acute infarction. No enhancing lesions. EXTRA-AXIAL SPACES: No fluid collections. No enhancing lesions. ORBITS AND GLOBE: No intra- or extraconal masses. Post cataract surgery bilaterally CALVARIUM: No fracture. PARANASAL SINUSES: Chronic opacification of left maxillary sinus with dense dried secretions SOFT TISSUES: No mass or hematoma. CTA neck: Bilateral common carotid arteries, carotid bifurcations, cervical internal carotid arteries are widel y patent. Codominant vertebral arteries. No dissection. No significant cervical adenopathy or neck mass and. Upper [place] digestive tract unremarkable. Lung clear. Mild degenerative changes cervical spine. Left-sided pacemaker. CTA [place]: No [place] stenosis, vascular malformation, or aneurysm. IMPRESSION: NORMAL BRAIN CT WITHOUT AND WITH CONTRAST. Unremarkable CTA [place]. Unremarkable CT angio neck/carotid and vertebral arteries EVIDENCE OF ACUTE STROKE: NO. TECHNICAL DOCUMENTATION: JOB ID: [id number] Quality ID # 436: Final reports with documentation of one or more dose reduction techniques (e.g., Au tomated exposure control, adjustment of the mA and/or kV according to patient size, use of iterative reconstruction technique) 2010 [employer]- All Rights Reserved Reading location - IP/workstation name: [email or web address]
== END ==
LOC: RAD 13:36
PROVIDERS: ATTEND Internal Medicine
DX: H53.2 Diplopia (principal); R20.0 Anesthesia of skin
CPT/HCPCS: 70470; 70496; 70498

== ENCOUNTER → 2020-07-08 | Outpatient (CLI) | payer MEDICARE, BC, OTHER ==
[2020-07-08 11:17] LABS: ABSOLUTE EOSINOPHILS # (AUTO) 0.1 10^3/uL (0.0-0.6); ABSOLUTE LYMPHOCYTES (AUTO) 1.9 10^3/uL (0.5-4.7); ABSOLUTE MONOCYTES (AUTO) 0.6 10^3/uL (0.1-1.4); ABSOLUTE NEUT (AUTO) 3.7 10^3/uL (1.7-8.2); BASOPHILS % (AUTO) 0.6 % (0-2); EOSINOPHILS % (AUTO) 1.8 % (0-6); HEMATOCRIT 40.1 % (37.9-51.0); HEMOGLOBIN 14.1 g/dL (13.5-17.0); LYMPHOCYTES % (AUTO) 29.8 % (13-45); MEAN CORPUSCULAR HEMOGLOBIN 31.4 pg (27.0-33.4); MEAN CORPUSCULAR HGB CONC 35.2 g/dL (32.0-36.0); MEAN CORPUSCULAR VOLUME 89 fl (80-97); MONOCYTES % (AUTO) 9.4 % (3-13); PLATELET COUNT 214 10^3/uL (150-450); RED CELL DISTRIBUTION WIDTH 12.9 % (11.5-14.0); SEGMENTED NEUTROPHILS % (AUTO) 58.4 % (42-78); TOTAL CELLS COUNTED % (AUTO) 100 %; WHITE BLOOD COUNT 6.4 10^3/uL (4.0-10.5)
[2020-07-08 11:47] LABS: ALBUMIN 4.3 g/dL (3.5-5.0); ALKALINE PHOSPHATASE 66 U/L (38-126); ANION GAP 9 (5-19); ASPARTATE AMINO TRANSFERASE 36 U/L (17-59); BILIRUBIN,DIRECT 0.4 mg/dL (0.0-0.4); BILIRUBIN,TOTAL 1.3 mg/dL (0.2-1.3); BLOOD UREA NITROGEN 22 mg/dL (7-20); CALCIUM 9.1 mg/dL (8.4-10.2); CARBON DIOXIDE 28 mmol/L (22-30); CHLORIDE 101 mmol/L (98-107); GLUCOSE 93 mg/dL (75-110); POTASSIUM 4.9 mmol/L (3.6-5.0); TOTAL PROTEIN 6.9 g/dL (6.3-8.2)
[2020-07-08 13:02] LABS: FOLATE > 20.00 ng/mL (>2.76)
== END ==
LOC: OD 10:00
PROVIDERS: ATTEND Internal Medicine
DX: G62.9 Polyneuropathy, unspecified (principal); I10 Essential (primary) hypertension; E83.41 Hypermagnesemia; R53.83 Other fatigue; D64.9 Anemia, unspecified
CPT/HCPCS: 36415; 80053; 82607; 82746; 83735; 84425; 84443; 85025